=== PATIENT | male | born 1975 | race Caucasian/White ===

== ENCOUNTER 2021-08-08 09:08 | Inpatient (IN) | payer OTHER ==
[~2021-08-08] VITALS: Ht 185.4 cm; Wt 125.6 kg
[2021-08-08 09:25] VITALS: BP 232/157
[2021-08-08] MEDS ORDERED: NOHOMEMEDICATIONS (09:26)
[2021-08-08 09:30] LABS: ABSOLUTE BASOPHILS 0.1 thou/uL (0.0-0.2); ABSOLUTE EOSINOPHILS 0.5 thou/uL (0.0-0.7); ABSOLUTE LYMPHOCYTES 2.4 thou/uL (0.8-5.3); ABSOLUTE MONOCYTES 0.6 thou/uL (0.0-1.2); HEMATOCRIT 43.7 % (42.0-52.0); LYMPHOCYTES 25.2 %; MCH 30.6 pg (26.0-34.0); MCHC 34.4 g/dL (28.0-37.0); MCV 89.1 fL (80.0-100.0); MONOCYTES 6.3 %; MPV 8.7 fl. (7.2-11.1); NUCLEATED RBCS 0 /100WBC; PLATELET COUNT* 235 thou/uL (150-400); POLYS 62.5 %; RDW-CV 13.3 % (10.5-14.5); WBC 9.7 thou/uL (4.0-11.0)
[2021-08-08 09:41] LABS: CALCIUM 8.7 mg/dL (8.5-10.1); CREATININE 0.9 mg/dL (0.6-1.3); POTASSIUM 3.5 mmol/L (3.5-5.1)
[2021-08-08 09:46] LABS: ALBUMIN 3.9 g/dL (3.4-5.0); TOTAL BILIRUBIN 0.4 mg/dL (<0.1-1.0); TOTAL PROTEIN 7.8 g/dL (6.4-8.2)
--- NOTE | 2021-08-08 11:25 | EKG ---
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 : 1975 Requested By: Charles Jack Order Number: [id number] MD: Flavio Cai Measurements Intervals [place] Rate: 71 P: 40 [place]: 152 QRS: -20 QRSD: 111 T: -7 QT: 458 QTc: 498 Interpretive Statements Sinus rhythm Probable left atrial enlargement Left ventricular hypertrophy Borderline T abnormalities, inferior leads Borderline prolonged QT interval No previous ECG available for comparison Electronically Signed On 08-08-2021 11:25:02 CDT by Flavio Cai [email or web address] <ELECTRONICALLY SIGNED> By: Flavio Cai MD, FACC 08/08/21 1125 9 9 Flavio Cai MD, [facility] /EPI
[2021-08-08 12:21] VITALS: BP 169/114
[2021-08-08 13:00] VITALS: BP 171/108
--- NOTE | 2021-08-08 19:19 | NUR ---
PT HAS RETURNED FROM MRI. DISCUSSED OPTIONS MOVING FORWARD FOR A PRIMARY CARE PROVIDER AND INSURANCE COVERAGE. RECOGNIZES THE NEED FOR CARE, BUT HAS NOT HAD A DOCTOR OR INSURANCE PREVIOUSLY.
[2021-08-08 20:09] VITALS: BP 201/121
[2021-08-09] VITALS (8 sets, daily range): BP systolic 178–241; BP diastolic 102–162
[2021-08-09 04:55] LABS: HEMATOCRIT 43.4 % (42.0-52.0); HEMOGLOBIN 15.1 gm/dL (14.0-18.0); MCH 30.6 pg (26.0-34.0); MCHC 34.8 g/dL (28.0-37.0); RBC 4.93 mil/uL (4.50-6.00); RDW-CV 13.3 % (10.5-14.5); WBC 10.1 thou/uL (4.0-11.0)
[2021-08-09 05:19] LABS: ALBUMIN 3.8 g/dL (3.4-5.0); ALKALINE PHOSPHATASE 110 U/L (46-116); ANION GAP 10 mmol/L (7-16); BUN 13 mg/dL (7-18); CALCIUM 8.7 mg/dL (8.5-10.1); CHLORIDE 104 mmol/L (98-107); CHOLESTEROL 244 mg/dL (<200); CO2 27 mmol/L (21-32); GLUCOSE 117 mg/dL (70-99); HDL CHOLESTEROL 31 mg/dL (>40); LDL CHOLESTEROL 189 mg/dL (<100); POTASSIUM 3.2 mmol/L (3.5-5.1); SGOT 16 U/L (15-37); SGPT 32 U/L (30-65); SODIUM 141 mmol/L (136-145); TC:HDL 7.9 Ratio (Not establshd); TOTAL BILIRUBIN 0.6 mg/dL (<0.1-1.0); TOTAL PROTEIN 7.5 g/dL (6.4-8.2); TRIGLYCERIDE 120 mg/dL (<150); VLDL 24 mg/dL (<40)
[2021-08-09 05:37] LABS: SERUM ASSESSMENT CLEAR
[2021-08-09 06:04] LABS: PROTIME 10.4 Seconds (9.20-11.50)
--- NOTE | 2021-08-09 08:30 | NUR ---
PT IS ABLE TO COMMUNICATE HIS NEEDS TO STAFF EFFECTIVELY. HE HAS DENIED THE NEED FOR PAIN MEDICATION UP TO 0700 THIS MORNING. 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 BP HAS BEEN QUITE ELEVATED AT TIMES; PAGED AND ORDERS RECEIVED WITH PARAMETERS. NEUROLOGY, REHAB, PT/OT FOLLOWING.
[2021-08-09] MEDS ORDERED: ASPIRIN EC81 M1 PO (10:33)
[2021-08-09] MEDS ORDERED: PLAVIX 75 MG TA75 M1 PO (10:33)
[2021-08-09] MEDS ORDERED: NORVASC5 M1 PO (10:35)
--- NOTE | 2021-08-09 15:49 | NUR ---
ASSUMED PT CARE AT 0730. PT IS ANXIOUSLY A&O X4. PT UP IN ROOM AD CURT. ASSESSMENT COMPLETED. NIH COMPLETED AND SCORED A ONE. PT STATES HE FEELS MUCH BETTER TODAY AND THAT THE NUMBNESS ON THE RIGHT SIDE HAS SUBSIDED GREATLY. PT REPORTS A LITTLE TINGLING SENSATION ON THE RIGHT ARM AND R SIDE OF FACE. BLOOD PRESSURE CONTINUES TO BE HIGH, PRN HYDRALIZINE ADMINISTERED ORDERED. PHYSICIAN INFORMED OF BLOOD PRESSURE, NEW ORDER RECIEVED AND ADMINISTERED. NEUROLOGY TO SEE PT TODAY. MEDICATIONS ADMINISTERED ORDERED. PT IMPATIENTLY WAITING NEUROLOGHY, STATING HE IS NOT WAITING ALL DAY HE WANTS TO GO HOME.
[2021-08-09 18:52] LABS: AMP/METHAMP Negative (Negative); BARBITURATES Negative (Negative); BENZODIAZEPINES Negative (Negative); COCAINE Negative (Negative); METHADONE Negative (Negative); OPIATES Negative (Negative); PCP Negative (Negative); THC POSITIVE (Negative)
[2021-08-10 04:59] LABS: HEMATOCRIT 45.4 % (42.0-52.0); HEMOGLOBIN 15.9 gm/dL (14.0-18.0); MCH 30.6 pg (26.0-34.0); MCV 87.3 fL (80.0-100.0); MPV 8.8 fl. (7.2-11.1); RBC 5.2 mil/uL (4.50-6.00); RDW-CV 13.3 % (10.5-14.5); WBC 11.2 thou/uL (4.0-11.0)
[2021-08-10 05:09] LABS: CALCIUM 9.3 mg/dL (8.5-10.1); CREATININE 0.9 mg/dL (0.6-1.3); POTASSIUM 3.3 mmol/L (3.5-5.1)
[2021-08-10 05:16] VITALS: BP 149/98
[2021-08-10 08:52] VITALS: BP 202/158
--- NOTE | 2021-08-10 08:54 | NUR ---
PT IS ABLE TO COMMUNICATE HIS NEEDS TO STAFF EFFECTIVELY. HE HAS DENIED THE NEED FOR PAIN MEDICATION UP TO 0700 THIS MORNING. POSSIBLE ECHO TODAY AND POSSIBLE DISCHARGE TODAY WELL.
[2021-08-10] MEDS ORDERED: LIPITOR 40 MG T40 M1 PO (09:28)
[2021-08-10 12:00] VITALS: BP 190/107
[2021-08-10 16:00] VITALS: BP 196/121
--- NOTE | 2021-08-10 18:23 | NUR ---
ASSUMED PT CARE AT 0730. PT IS A&OX4 AND PLEASANT. BP REMAINS HIGH. DR VEGA HERE AND AWARE, NEW ORDER TO ADMINISTER 5MG OF NORVASC AND HOLD HYDRALIZINE. PT AGREES TO STAY UNTILL TOMORROW TO GET ECHO. BP NOW 196/121. MESSAGE SENT TO DOCTOR TO INFORM OF UPDATE. PT IS UP ADLIB, VOICES NO CONCERNS AT THIS TIME.
--- NOTE | 2021-08-10 19:59 | NUR ---
DR VEGA RETURNED CALL AND NEW ORDER TO ADMINISTER 5MG OF NORVASC THIS EVENING AND CHANGE 5MG TO 10MG DAILY FOR HTN. HOLD HYDRALYZINE.
[2021-08-10 20:09] VITALS: BP 187/118
[2021-08-11] VITALS: BP 188/114
[2021-08-11 02:05] LABS: GLYCOHEMOGLOBIN (HGB A1C) 5.4 % (4.8-5.6)
[2021-08-11 04:00] VITALS: BP 173/100
--- NOTE | 2021-08-11 05:06 | NUR ---
PT IS ABLE TO COMMUNICATE HIS NEEDS TO STAFF EFFECTIVELY. HE HAS DENIED THE NEED FOR PAIN MEDICATION UP TO THIS TIME. ECHO TODAY WITH POSSIBLE DISCHARGE LATER TODAY.
[2021-08-11 05:26] LABS: HEMATOCRIT 45.9 % (42.0-52.0); HEMOGLOBIN 16.1 gm/dL (14.0-18.0); MCH 30.7 pg (26.0-34.0); MCHC 35.1 g/dL (28.0-37.0); MCV 87.4 fL (80.0-100.0); MPV 8.9 fl. (7.2-11.1); RBC 5.25 mil/uL (4.50-6.00); WBC 10.8 thou/uL (4.0-11.0)
[2021-08-11 05:45] LABS: CALCIUM 9.1 mg/dL (8.5-10.1)
[2021-08-11 05:48] LABS: POTASSIUM 2.9 mmol/L (3.5-5.1)
--- NOTE | 2021-08-11 07:10 | NUR ---
CHANGE OF SHIFT REPORT GIVEN PATIENT SEEN IN BED WATCHING TV ASSUMED PATIENT CARE
[2021-08-11 08:00] VITALS: BP 207/128
--- NOTE | 2021-08-11 09:55 | NUR ---
CM ASSESSMENT: PT A&O, INDEPENDENT WITH ADL'S, AND ACTIVE. PT RESIDES AT HOME WITH SPOUSE. PT USES 0 DME. PT HAS 0 HX OF HH OR SNF. REVIEW OF PT'S CHART INFORMS THAT HE IS UNINSURED. PT CONFIRMS THIS. PT INFORMS THAT HE IS OPEN TO MED ASSIST ASSESSMENT FOR MEDICAID. CM PROVIDED PT COMMUNITY RESOURCE INFO FOR [facility], [facility], AND [facility]. CM WILL REMAIN AVAILABLE TO ASSIST AND FOLLOW NEEDED.
[2021-08-11 11:40] VITALS: BP 223/141
--- NOTE | 2021-08-11 15:58 | 2DMMODE ---
[place] [address] 2 D/M-MODE ECHOCARDIOGRAM Name: NARESH BAE JR Room: [address] ADM IN [facility]#: [id number] Admission: 08/08/21 Attend Phys: Thong Fortune Discharge: Date of : 71 Date of Service: 08/11/21 1558 Report #: [id number] THIS REPORT FOR: cc: FAM - No family physician/PCP FAM - No family physician/PCP Carlos Gonzalez MD [facility] ~ APPROVED REPORT Study performed: 08/11/2021 11:40:36 EXAM: Comprehensive 2D, Doppler, and color-flow Echocardiogram Patient Location: In-Patient Room #: [facility] Status: routine BSA: 2.50 HR: 83 bpm BP: 207/128 mmHg Rhythm: NSR Other Information Study Quality: Good Indications CVA/TIA Echo Enhancing Agent Indication: Rule out Shunt Agent(s) / Amount(s) Used: Agitated Saline 10 cc 2D Dimensions IVSd: 14.82 (7-11mm) LVOT Diam: 20.73 (18-24mm) LVDd: 48.49 mm PWd: 14.66 (7-11mm) Ascending Ao: 40.00 (22-36mm) LVDs: 22.41 (25-40mm) Aortic Root: 38.61 mm Volumes Left Atrial Volume (Systole) LA ESV Index: 31.80 mL/m2 Aortic Valve AoV Peak Jose.: 1.34 m/s AO Peak Gr.: 7.16 mmHg LVOT Max P.05 mmHg AO Mean Gr.: 4.13 mmHg LVOT Mean P[place]06 [place] [address] 2 D/M-MODE ECHOCARDIOGRAM Name: NARESH BAE JR Room: [address] IN .R.#: [id number] Admission: 08/08/21 Attend Phys: Thong Fortune Discharge: Date of : 71 Date of Service: 08/11/21 1558 Report #: [id number] LVOT Max V: 1.33 m/s AO V2 VTI: 18.85 cm LVOT Mean V: 0.79 m/s APPLE (VTI): 3.77 cm2 LVOT V1 VTI: 21.04 cm Mitral Valve E/A Ratio: 0.54 MV Decel. Time: 267.81 ms MV E Max Jose.: 0.50 m/s MV PHT: 77.66 ms MVA (PHT): 2.83 cm2 TDI E/Lateral E': 4.55 E/Medial E': 7.14 Medial E' Jose.: 0.07 m/s Lateral E' Jose.: 0.11 m/s Pulmonary Valve PV Peak Jose.: 1.29 m/s PV Peak Gr.: 6.68 mmHg Left Ventricle The left ventricle is normal size. There is normal LV segmental wall motion. Moderate concentric left ventricular hypertrophy. Left ventricular systolic function is normal. LVEF is 60-65%. Grade I - abnormal relaxation pattern. Right Ventricle The right ventricle is normal size. The right ventricular systolic function is normal. Atria The left atrium size is normal. The interatrial septum is intact with no evidence for an atrial septal defect. The right atrium size is normal. Aortic Valve The aortic valve is normal in structure. No aortic regurgitation is present. There is no aortic valvular stenosis. Mitral Valve The mitral valve is normal in structure. There is no mitral valve regurgitation noted. No evidence of mitral valve stenosis. Tricuspid Valve The tricuspid valve is normal in structure. Unable to assess PA pressure. Trace [place] [address] 2 D/M-MODE ECHOCARDIOGRAM Name: NARESH BAE Room: [address] IN [facility]#: [id number] Admission: 08/08/21 Attend Phys: Thong Fortune Discharge: Date of : 71 Date of Service: 08/11/21 1558 Report #: [id number] Pulmonic Valve The pulmonary valve is normal in structure. There is no pulmonic valvular regurgitation. Great Vessels The aortic root is normal in size. The ascending aorta is mildly dilated. IVC is normal in size and collapses >50% with inspiration. Pericardium There is no pericardial effusion. <Conclusion> The left ventricle is normal size. Moderate concentric left ventricular hypertrophy. Left ventricular systolic function is normal. LVEF is 60-65%. Grade I - abnormal relaxation pattern. The interatrial septum is intact with no evidence for an atrial septal defect. Trace tricuspid regurgitation. IVC is normal in size and collapses >50% with inspiration. The ascending aorta is mildly dilated. <ELECTRONICALLY SIGNED> By: Carlos Gonzalez MD, FACC 08/11/21 1558 1558 1558 Carlos Gonzalez MD, FACC /INF
[2021-08-11 17:08] VITALS: BP 179/121
[2021-08-11 20:00] VITALS: BP 196/129
[2021-08-12 00:55] VITALS: BP 125/75
[2021-08-12 05:03] VITALS: BP 146/95
[2021-08-12 05:06] LABS: HEMOGLOBIN 16.4 gm/dL (14.0-18.0); MCH 30.3 pg (26.0-34.0); MCHC 34.8 g/dL (28.0-37.0); MCV 87.1 fL (80.0-100.0); MPV 8.9 fl. (7.2-11.1); RBC 5.4 mil/uL (4.50-6.00); RDW-CV 13.2 % (10.5-14.5); WBC 10.6 thou/uL (4.0-11.0)
[2021-08-12 05:21] LABS: CALCIUM 9.2 mg/dL (8.5-10.1); CREATININE 1.1 mg/dL (0.6-1.3); POTASSIUM 3.2 mmol/L (3.5-5.1)
[2021-08-12 08:00] VITALS: BP 189/114
[2021-08-12] MEDS ORDERED: HYDROCHLOROTHIA25 M1 PO (09:37)
[2021-08-12] MEDS ORDERED: LISINOPRIL5 MG PO (09:37)
[2021-08-12 10:43] VITALS: BP 189/114
--- NOTE | 2021-08-12 11:03 | NUR ---
ASSUMED PT CARE AT APPROX 0730, PT AOX4, STATES HE STILL HAS A MINOR AMOUNT OF NUMBNESS AND TINGLING ON HIS RT ARM BUT THAT EVERYTHING ELSE HAD RESOLVED. PT WORKED W/ DR AND DC ORDERS RECEIVED. IV AND DIRECTOR OUTCOMES REMOVED. PT DC'D W/ NURSING STAFF TO 'S VEHICLE AT APPROX 1105 W/ ALL PAPERWORK AND PERSONAL BELONGINGS
--- NOTE | 2021-08-13 10:12 | CON ---
[address] [address] CONSULTATION Name: NARESH BAE Room: [address] IN M.R.#: [id number] Admission: 08/08/21 Attend Phys: Seferino Calix Discharge: 08/12/21 Date of : 71 Report #: [id number] THIS REPORT FOR: cc: LO - No family physician/PCP FAM - No family physician/PCP Jarad Hinojosa MD ~ DATE OF CONSULTATION: 08/08/2021 HISTORY OF PRESENT ILLNESS: This is a 46-year-old male patient who was evaluated by me for right arm numbness and weakness. He had the right arm weakness, but that is better. Right arm numbness is still there, but getting somewhat better. He was evaluated by [facility] and those records were reviewed. His NIH score was 2 and there is evidence of what looks like lacunar CVAs multiple spots in the brain, but the CT angiogram does not demonstrate any large retrievable thrombus or embolus. It does appear to be showing some disease. REVIEW OF SYSTEMS: Indicates that this patient was hypertensive when he came in. It does not look like he has checked his blood pressure for long time. So he might be untreated and undiagnosed hypertensive for a long time. He denies any other risk factor. He does have a family history of myocardial infarctions and a bypass surgery as I understand. Presently, he is not complaining of any significant eye, ENT, cardiac, respiratory, GI, , musculoskeletal, constitutional, dermatological, hematological, psychiatric, throat, allergic symptom associated with present symptomatology. PAST MEDICAL HISTORY: Negative for any clinical stroke, although his CT scan does appear to be showing multiple lacunar strokes. FAMILY HISTORY: Positive for bypass surgery. SOCIAL HISTORY: He says he used to smoke, but quit in 2012. He smokes marijuana on a regular basis. He drinks alcohol few times a year according to the patient. PHYSICAL EXAMINATION: NEUROLOGIC: He is alert, responsive, able to follow simple and complex commands. His speech looks intact. Memory and fund of knowledge is at his baseline. Cranial nerve examination 2-12 does not appear to be showing any focality. On my examination, his strength and sensation appear unremarkable, although he has subjective decrease in sensation on the right side. He does fairly well with position sense on both sides. His reflexes are symmetrical. His plantars are mute. He does gywofa-ez-thva is very well. I could not look at his fundus. There is no meningeal sign. There is no carotid bruit. He is morbidly obese. [place] [address] CONSULTATION Name: NARESH BAE JR Room: [address]R.#: [id number] Admission: 08/08/21 Attend Phys: Seferino Calix Discharge: 08/12/21 Date of : 71 Report #: [id number] VITAL SIGNS: Blood pressure is better, but even the last blood pressure is 171/108, pulse is 56, temperature is 98.3, and respirations 16. LABORATORY DATA: His white count is 9.7. His GFR is 90. IMPRESSION AND DISCUSSION: The most likely diagnosis in this patient is that he has multiple lacunar cerebrovascular accidents secondary to uncontrolled hypertension, which was undiagnosed. However, he is pretty young. He will require extensive workup to exclude any other pathology. I discussed with him that the first test we would like to do is an MRI of the brain with and without contrast. I discussed with him the potential complication with the contrast, which can occur including irreversible dermatological reactions. He understands that and wants to proceed with MRI with and without contrast. I will check a carotid Doppler. He will need an echocardiogram. We will do a hypercoagulable profile. The patient should be on a combination of aspirin and Plavix. He said he was not taking any aspirin, Plavix or any blood thinner at home. His platelet count is normal. I discussed all of it with the patient in detail and he understands that. I decided to do MRI with and without contrast just to make sure there is no other pathology, which is there because of his young age. Thank you very much for this referral. <ELECTRONICALLY SIGNED> By: Jarad Hinojosa MD 08/13/21 1012 1451 [id number] Hinojosa MD /nt
== END 2021-08-12 11:05 | disposition home or self-care (01) | DRG 65 ==
LOC: M.ERS 09:08 → M.TBA-ER 10:32 → M.2W 12:33
PROVIDERS: Emergency Medicine Emergency Medical Services; Internal Medicine; Psychiatry & Neurology Neuromuscular Medicine; ADMIT Internal Medicine; ATTEND Internal Medicine
DX: I63.81 Other cerebral infarction due to occlusion or stenosis of small artery (principal); I16.1 Hypertensive emergency; I10 Essential (primary) hypertension; E87.6 Hypokalemia; E78.5 Hyperlipidemia, unspecified; Z20.822 Contact with and (suspected) exposure to COVID-19